=== PATIENT | male | born 1990 | race African-American/Black ===

== ENCOUNTER 2019-07-02 09:06 | Emergency (ER) | payer BC, OTHER ==
[~2019-07-02] VITALS: Ht 177.8 cm; Wt 87.0 kg
[2019-07-02] MEDS ORDERED: BACITRACIN ZINC OINT UDPKT TOP ONE (10:15)
[2019-07-02 10:29] VITALS: BP 118/74
== END 2019-07-02 10:30 | disposition home or self-care (01) ==
LOC: ER 09:06
DX: S90.861A Insect bite (nonvenomous), right foot, initial encounter (principal); W57.XXXA Bitten or stung by nonvenomous insect and other nonvenomous arthropods, initial encounter; Y93.89 Activity, other specified; Y92.89 Other specified places as the place of occurrence of the external cause; Y99.8 Other external cause status
CPT/HCPCS: 99283